=== PATIENT | male | born 1975 ===

== ENCOUNTER 2020-10-16 10:32 | Emergency (ER) | payer OTHER ==
[~2020-10-16] VITALS: Ht 167.6 cm; Wt 72.6 kg
== END 2020-10-16 14:32 | disposition home or self-care (01) ==
LOC: ER 10:32
DX: L03.811 Cellulitis of head [any part, except face] (principal)

== ENCOUNTER 2021-02-12 09:25 | Outpatient (CLI) | payer OTHER | END 2021-02-12 09:35 | disposition home or self-care (01) | LOC: PPH VACUNA 09:25 | PROVIDERS: ATTEND Emergency Medicine Pediatric Emergency Medicine | DX: Z23 Encounter for immunization (principal) ==

== ENCOUNTER 2021-08-20 09:21 | Outpatient (CLI) | payer OTHER | END 2021-08-20 10:34 | disposition home or self-care (01) | LOC: RAD 09:21 | DX: M54.2 Cervicalgia (principal); M54.6 Pain in thoracic spine; M54.51 Vertebrogenic low back pain ==